=== PATIENT | female | born 1980 | race Hispanic/Latino ===

== ENCOUNTER 2025-09-19 10:31 | Emergency (ER) | payer BC, SELFPAY ==
[2025-09-19] MEDS ORDERED: ALPRAZolam 0.5 MG TAB ONE (11:03)
[2025-09-19 11:27] LABS: ALT (SGPT) 14 U/L (Less than 34); AST (SGOT) 24 U/L (11-34); Albumin 4.1 g/dL (3.1-4.5); Alkaline Phosphatase 73 U/L (40-110); Anion Gap 18 mmol/L (10-20); BUN (Urea Nitrogen) 6 mg/dL (7.0-18.7); Bilirubin, Total 0.4 mg/dL (0.3-1.2); Calc. Creatinine Clearance 0 mL/min (70-130); Calcium 8.3 mg/dL (7.8-10.44); Carbon Dioxide 20 mmol/L (22-29); Chloride 104 mmol/L (98-107); Globulin 3.5 g/dL (2.4-3.5); Glucose 112 mg/dL (70-105); Magnesium 1.7 mg/dL (1.6-2.6); Potassium 3.5 mmol/L (3.5-5.1); Sodium 138 mmol/L (136-145)
[2025-09-19 11:29] LABS: Troponin I Less than 0.010 ng/mL (< 0.028)
[2025-09-19 11:37] LABS: Hematocrit 43.9 % (36.0-47.0); Hemoglobin 14.6 g/dL (12.0-16.0); Mean Corpuscular Hemoglobin 28.8 pg (27.0-31.0); Mean Corpuscular Volume 86.8 fl (78.0-98.0); Platelet Count 256 10x3/uL (130-400); Red Blood Cell (RBC) Count 5.06 mill/uL (4.20-5.40); White Blood Cell (WBC) Count 7.2 10x3/uL (4.8-10.8)
[2025-09-19 11:53] LABS: MDiff Complete? YES
== END 2025-09-19 12:25 | disposition home or self-care (01) ==
LOC: NAV ERS 10:31
DX: F41.1 Generalized anxiety disorder (principal)
CPT/HCPCS: 36415; 71045; 80053; 83735; 84443; 84484; 85025; 93005; 94760